=== PATIENT | male | born 1955 | race Caucasian/White ===

== ENCOUNTER → 2019-06-11 | Outpatient (CLI) | payer BC ==
[~2019-06-11] MED LIST: REGADENOSON 0.4 MG/5 ML DISP.SYRIN. IV ONE
--- NOTE | 2019-06-12 16:36 | PCVCIMAG ---
APPROVED REPORT Study performed: 06/11/2019 07:53:24 EXAM: Comprehensive 2D, Doppler, and color-flow Echocardiogram Patient Location: Echo lab Status: routine BSA: 2.45 HR: 53 bpmBP: 130/78 mmHg Rhythm: Bradycardia Other Information Study Quality: Adequate Risk Factors: Cardiac Risk Factors: HTN, Smoking Indications Palpitations 2D Dimensions IVSd: 13.65 (7-11mm) LVDd: 46.65 mm PWd: 10.96 (7-11mm) LVDs: 31.54 (25-40mm) Left Atrium: 39.40 (27-40mm) Aortic Root: 30.40 mm LV Single Plane 4CH: 66.84 % LV Single Plane 2CH: 62.73 % Biplane EF: 65.3 % Volumes Left Atrial Volume (Systole) Single Plane 4CH: 91.54 mLSingle Plane 2CH: 94.56 mL LA ESV Index: 38.00 mL/m2 Aortic Valve AoV Peak Aniket.: 1.79 m/s AO Peak Gr.: 12.87 mmHgLVOT Max P.56 mmHg LVOT Max V: 1.37 m/s Mitral Valve E/A Ratio: 1.3 MV Decel. Time: 282.44 ms MV E Max Aniket.: 0.66 m/s MV A Aniket.: 0.49 m/s IVRT: 114.19 ms Pulmonary Valve PV Peak Aniket.: 1.10 m/sPV Peak Gr.: 4.84 mmHg Pulmonary Vein P Vein S: 0.32 m/sP Vein A: 0.31 m/s P Vein D: 0.42 m/sP Vein A Dur.: 121.1 msec P Vein S/D Ratio: 0.76 Tricuspid Valve TR Peak Aniket.: 2.47 m/s TR Peak Gr.: 24.40 mmHg Left Ventricle The left ventricle is normal size. There is normal LV segmental wall motion. Mild concentric left ventricular hypertrophy. Left ventricular systolic function is normal. The left ventricular ejection fraction is within the normal range. LVEF is 65%. Grade II - pseudonormal filling dynamics. Right Ventricle The right ventricle is normal size. The right ventricular systolic function is normal. Atria Left atrium is mildly dilated. Right atrium is mildly dilated. Aortic Valve The aortic valve is normal in structure. Trace aortic regurgitation. There is no aortic valvular stenosis. Mitral Valve The mitral valve is normal in structure. There is no mitral valve regurgitation noted. No evidence of mitral valve stenosis. Tricuspid Valve The tricuspid valve is normal in structure. Mild tricuspid regurgitation with PAP of 31 mmHg. Pulmonic Valve The pulmonary valve is normal in structure. There is trace pulmonic valvular regurgitation. Great Vessels The aortic root is normal in size. IVC is normal in size and collapses >50% with inspiration. Pericardium There is no pericardial effusion. There is no pleural effusion. <Conclusion> The left ventricle is normal size. LVEF is 65%. Left atrium is mildly dilated. Right atrium is mildly dilated. The aortic valve is normal in structure. Trace aortic regurgitation. The mitral valve is normal in structure. The tricuspid valve is normal in structure. Mild tricuspid regurgitation with PAP of 31 mmHg. The pulmonary valve is normal in structure. There is no pericardial effusion.
--- NOTE | 2019-06-13 12:40 | PCVCIMAG ---
APPROVED REPORT Imaging Protocol: Rest Tc-99m/Stress Tc-99m 1 day Study performed: 06/11/2019 09:15:15 Indication: Dyspnea, Palpitations, Nausea, Lightheadedness Patient Location: Out-Patient Stress Nurse: Bianca Palomo RN, Юлия Koo RN [employer]:TOYIN Keith Ht: 6 ft 2 in Wt: 265 lbs BSA: 2.45 m2 HR: 66 bpm BP: 131/77 mmHg BMI: 34.0 Rhythm: Sinus Rhythm Medical History Medical History: Age, Current Tobacco User Medications: Amlodipine Allergies: No known drug allergies Exercise History: Physically active Resting Data Rest SPECT myocardial perfusion imaging was performed in supine position 45 minutes following the intravenous injection of 10.8 mCi of Tc-99m Sestamibi. Time of rest injection: 0845 Date: 06/11/2019 Administration Route: IV Administration Site: Right Arm Exercise Stress At peak stress, the patient was injected intravenously with 32.2mCi of Tc-99m Sestamibi. Time of stress injection: 1025 Date: 06/11/2019 Administration Route: IV Administration Site: Right Arm Patient continued to exercise for 1 minute(s). Gated Stress SPECT was performed 45 minutes after stress injection. The images were gated to evaluate regional wall motion and calculate left ventricular ejection fraction. Stress Test Details Stress Test: Exercise stress testing was performed using a Hermes protocol. HRMax Heart Rate (APMHR): 158 bpm Resting HR: 66 bpmTarget HR (85% APMHR): 134 bpm Max HR Achieved: 144 bpm % of APMHR: 91 Recovery HR: 80 bpm HR response to stress: Normal HR response to stress BP Resting BP: 131/77 mmHg Max BP: 172/75 mmHg Recovery BP: 145/68 mmHg BP response to stress: Normal blood pressure response to stress. ECG Resting ECG: Sinus Rhythm Stress ECG: Sinus Tachycardia ST Change: None Maximum ST Deviation: 0 mm Arrhythmia: None Recovery ECG: Sinus Rhythm Recovery ST Change: None Clinical Reason for Termination: Maximal effort Stress Symptoms: Dyspnea, Leg Fatigue Exercise duration: 6 min 00 sec Exercise capacity: 7 METs Overall Exercise Capacity for Age: Average Scale: Active Angina Score: None Symptoms resolved during recovery. Stress ECG Conclusion 1. subjectively negative for ischemia 2. electrocardiographically negative for ischemia 3. decreased functional capacity Duarte Treadmill Score is 6.0 which is Low risk. Study Data Post stress, the left ventricular ejection was 75%.. SSS: 0 SRS: 0 SDS: 0 TID = 0.88. Perfusion There is a large area of moderately reduced uptake in the entire segment of the inferior wall which is seen on the stress images as well as the resting images. This area thickens and moves normally and is most consistent with attenuation artifact. Nuclear Conclusion ECG Findings: negative for ischemia Clinical Findings: negative for ischemia Nuclear Findings: negative for ischemia Exercise Capacity: reduced Left Ventricular Function: normal 1. low risk study 2. post exwecise lvef 75% without wall motion abnormalities Interpreted by: Rufus Langston MD Electronically Approved: 06/13/2019 12:39:52 <Conclusion> 1. subjectively negative for ischemia 2. electrocardiographically negative for ischemia 3. decreased functional capacity
== END | disposition home or self-care (01) ==
LOC: PCVCIMAG 07:50
PROVIDERS: ATTEND Internal Medicine
DX: R06.09 Other forms of dyspnea (principal); R42 Dizziness and giddiness; R00.2 Palpitations; I10 Essential (primary) hypertension; Z87.891 Personal history of nicotine dependence
CPT/HCPCS: 78452; 93017; 93306; A9500; J2785